=== PATIENT | female | born 1950 | race Caucasian/White ===

== ENCOUNTER 2021-01-01 07:26 | Day surgery (SDC) | payer MEDICARE, OTHER, SELFPAY ==
[2021-01-01] MEDS: Tropicam./Phenyleph. (1/2.5%) 5 ML BTL OS ×3 (07:46→08:02)
[2021-01-01 07:47] VITALS: BP 132/85; PULSE 76; RESP 16; TEMP 36.1; O2SAT 98
--- NOTE | 2021-01-01 07:56 | W.ANESPRE ---
General Info Date of Service Date Performed: 01/01/21 Height: 5 ft 9 in Weight: 96.2 kg Body Mass Index (BMI): 31.3 Surgical Procedure: Operation Date: 01/01/21 09:10 Proposed Procedures Side Surgeon p Cataract Extraction with IOL Implant Left Jaden Barrientos MD Meds Allergies and Home Medications Allergies Allergy/AdvReac Type Severity Reaction Status Date / Time latex Allergy Intermediate Skin Rash Unverified 01/01/21 07:42 Penicillins Allergy Intermediate Other (See Unverified 01/01/21 07:42 Comment) Home Medication Medication Instructions Recorded acetaminophen [Acetaminophen Extra 1,000 mg PO Q6H PRN 12/29/20 Strength] biotin 500 mg PO DAILY 12/29/20 ibuprofen 400 mg PO Q6H PRN 12/29/20 levothyroxine 100 mcg PO DAILY 12/29/20 vit C,R-Cj-yrfii-lutein-zeaxan 2 cap PO DAILY 12/29/20 [PreserVision AREDS-2] Current Visit Medications: Current Medications Generic Name Dose Route Start Last Admin Trade Name Thomasq PRN Reason Stop Dose Admin Acetaminophen 1,000 mg 01/01/21 06:00 Acetaminophen 500 Mg Tab PO Q4H PRN PRN Miscellaneous Medication 0 ml 01/01/21 06:00 Prednisolone 1%, Moxifloxacin 0.5%, Nepafenac 0.1% 5ml Btl OS DIRECTED [facility] Miscellaneous Medication 0 ml 01/01/21 06:00 01/01/21 07:52 Tropicam./Phenyleph. (1/2.5%) 5 Ml Btl OS 1 drp DIRECTED [facility] Administration Tetracaine HCl 0 ml 01/01/21 06:00 Tetracaine 0.5% 4 Ml Btl OS DIRECTED [facility] PFSH Active Problems Active Problems: Problem Status Onset Code Cortical cataract of left eye H26.9 Nuclear sclerotic cataract of left eye H25.12 Medical History Medical History Conduction disorder of the heart Pt. 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 Family history of blood disorder History of rheumatic fever as a child Hypothyroidism Insomnia Migraine with aura Neck pain Not for resuscitation Overweight Screening for hyperlipidemia Surgical History Surgical History Hx of cholecystectomy Hx of colonoscopy Hx of tonsillectomy Hx of tubal ligation Tobacco Smoking/Tobacco Use Status: Never Alcohol Alcohol Intake: never Substance Use Substance use type: does not use Vital Signs and Lab Results Vital Signs Most Recent Vital Signs in EMR: Most Recent Vital Signs Temp Pulse Resp BP Pulse Ox 36.1 C L 76 16 132/85 98 01/01/21 07:47 01/01/21 07:47 01/01/21 07:47 01/01/21 07:47 01/01/21 07:47 Lab Results Blood Type / Crossmatch: No Data to Display Complete Blood Count: No Data to Display Complete Metabolic Panel: No Data to Display Liver Function Panel: No Data to Display Coagulation Panel: No Data to Display Cardiac Panel: No Data to Display Arterial Blood Gas: No Data to Display Venous Blood Gas: No Data to Display Pancreas Panel: No Data to Display Thyroid Panel: No Data to Display Infectious Disease: No Data to Display Blood Cultures: No Data to Display Toxicology Panel: No Data to Display Anesthesia Assessment and Plan Anesthesia History Personal History: No History of Anesthesia Complications Family History: No Family History of Anesthesia Complications Exercise Tolerance Exercise Tolerance: Metabolic Equivalents>4 Pertinent Negatives Pertinent Negatives: No Symptoms of GERD, No Major Cardiovascular Symptoms or Complaints, No Major Pulmonary Symptoms or Complaints and No History of CVA/TIA Cardiac & Pulmonary Exam Cardiac Exam: Normal S1/S2 Heart Sounds Pulmonary Exam: Clear Bilateral Breath Sounds Airway Exam Known Difficult Airway: No Mallampati Class: 1 Mouth Opening: Normal (> 3cm) Thyromental Distance: Greater than 3 cm Neck Range of Motion: Full ROM Neck Circumference: Normal Teeth Condition: Normal Dentition ASA Classification ASA Score: ASA 1 Emergency Case?: No NPO Status NPO Status: NPO Clears >2 hours, Solids >8 hours Anesthesia Plan Resuscitation Status: Full Code Anesthesia Technique: MAC Anesthesia Airway Planned: Natural Airway Monitors Used: Standard Monitors
[2021-01-01 07:59] VITALS: BMI 31.3
[2021-01-01] MEDS: Tetracaine 0.5% 4 ML BTL OS (08:54)
[2021-01-01] MEDS: Balanced Salt Soln.-PLUS 500 ML BAG (08:54)
[2021-01-01] MEDS: Duovisc Viscoelastic System EACH 1 EACH (08:55)
[2021-01-01] MEDS: Lidocaine 1% Pres-Free 5 ML VIAL (08:56)
[2021-01-01] MEDS: Lidocaine 2% Jelly 6 ML SYR (08:57)
[2021-01-01] MEDS: Povidone-Iodine Ophth 30 ML BTL (08:58)
--- NOTE | 2021-01-01 09:19 | W.PM.DSUDISC ---
Discharge Plan Disposition Patient Disposition: HOME Condition: Good Discharge Details Reason For Visit: CATARACT Attending Provider: Jaden Barrientos Primary Care Provider: Demetrius You Home Meds and New Rx's Prescriptions: No Action acetaminophen [Acetaminophen Extra Strength] 500 mg Tablet 1,000 mg PO Q6H PRNRF: 0 levothyroxine 100 mcg Tablet 100 mcg PO DAILY RF: 0 ibuprofen 200 mg Tablet 400 mg PO Q6H PRNRF: 0 biotin 1 mg Capsule 500 mg PO DAILY RF: 0 PreserVision AREDS-2 250-90-40-1 mg Capsule 2 cap PO DAILY RF: 0 Discharge Instructions Stand Alone Forms: Post-op Topical Cataract, Alyssia Blanca ([facility]) Discharge Orders Discharge Orders: Discharge Order (Routine); Ordered 01/01/21 Ordered By: Jaden Barrientos DS: Diagnosis Discharge Diagnosis (1) Cortical cataract of left eye: Status: Resolved (2) Nuclear sclerotic cataract of left eye: Status: Resolved
--- NOTE | 2021-01-01 09:20 | ROE_ITS ---
Date of service: 01/01/21 Time of Service: 09:20 Operative Note Operative Note DATE OF PROCEDURE: 01/01/21 PRE-OP DIAGNOSIS: Nuclear/cortical cataract, left eye POST-OP DIAGNOSIS: same PROCEDURE: Cataract extraction using phacoemulsification with intraocular lens implant, left eye SURGEON: Jaden Barrientos ANESTHESIA TYPE: Local By Surgeon and MAC Refer to Anesthesia Record PATHOLOGY: none sent COMPLICATIONS: None Patient was transported to: same day Patient's condition: stable Implants: [employer] / [employer] Tecnis ZCB00 Indications: Progressive decreased vision due to cataract, left eye Procedure Description: CATARACT SURGERY OPERATIVE REPORT PREOPERATIVE DIAGNOSIS: Nuclear/cortical cataract, left eye POSTOPERATIVE DIAGNOSIS: Same OPERATION: Cataract extraction using phacoemulsification with posterior chamber intraocular lens implant, left eye. IOL: IOL Senior [employer] Parachutist/Model: J[employer]J Vision / DEXTER Tecnis ZCB00 IOL Power: + 19.0 diopters IOL Serial Number: [id number] Optic Diameter: 6.0mm Haptic/Overall Diameter: 13.0mm PHACO INFO: Garrett [employer]ion Vision System with OZil and Active Fluidics Cumulative Dispersed Energy (CDE): 6.05 seconds SURGEON: Jaden Barrientos MD, JASIEL ANESTHESIA: Monitored Anesthesia Care (MAC), with local sub-tenon's anesthetic infiltration COMPLICATIONS: None SPECIMENS: None INDICATIONS FOR PROCEDURE: The patient is a 70-year-old lady with history of diminished visual acuity in her left eye secondary to the development of nuclear and cortical cataract. The option of cataract surgery was offered to the patient and she felt she was symptomatic enough that she wished to proceed. PROCEDURE: The correct surgical eye was identified and marked as the left eye and the pupil was dilated in the preoperative area using mydriatics and cycloplegics. The dilated pupil size was 6.5 mm. She elected to proceed without oral sedation. The patient was brought to the operating room where cardiopulmonary monitoring was instituted and surgical time-out was performed, confirming the correct operative eye and IOL power. Topical anesthesia was administered and ophthalmic povidone-iodine 5% was instilled into the conjunctival fornices. Lidocaine gel was applied to the cornea and the christi-ocular area was prepped with Betadine 10% solution and draped in the usual sterile fashion for intraocular surgery, including an aperture drape. A Tegaderm transparent film dressing was cut in half and used to cover the lashes and lid margins. Care was taken to sequester the lashes and lid margins under the Tegaderm dressing. A lid speculum was placed between the lids of the operative eye and the Rebecca-Monkia operating microscope was maneuvered into position. Essence scissors were then used to make a conjunctival buttonhole approximately 6mm posterior to the limbus in the inferonasal quadrant. Blunt dissection was carried out to expose bare sclera, and a blunt-tipped sub-tenon?s anesthesia cannula was introduced and passed posteriorly along the globe where non- preserved plain lidocaine was injected into posterior sub-Tenon?s space. A sideport knife was used to make a paracentesis port superior/superiortemporally. Intraocular phenylephrine/lidocaine was injected into the anterior chamber. The anterior chamber was then filled with viscoelastic. A 2.4mm keratome knife was used to create a half-thickness groove at the limbus and then to construct a three-plane near-clear corneal tunnel extending 2.0mm into clear cornea in the temporal position. . A flap was raised on the anterior capsule and capsulorhexis forceps were used to complete a continuous curvilinear capsulorhexis of 5.5 mm. Balanced salt solution was then used to perform cortical cleaving hydrodissection and nuclear hydrodelineation until the lens could be freely rot ated within the capsular bag. The lens nucleus was then disassembled and removed within the capsular bag and iris plane using phacoemulsification. Residual cortical material was removed using the 45-degree angled silicone I/A tip with 0.3mm port. The posterior capsule was carefully polished to remove as much residual lens epithelial cells as safely possible. The capsular bag was then inflated and the anterior chamber deepened with viscoelastic. The lens implant described above was inserted into the capsular bag using the DEXTER [place] Injector. A Kuglen hook was used to dial the IOL into position. Residual viscoelastic was then removed first from posterior to the IOL, then from the anterior chamber using the I/A handpiece. The lens implant was noted to center nicely within the capsular bag. The incisions were stromally hydrated, and the anterior chamber was reformed using BSS. Then 0.5cc of moxifloxacin 1.0mg/ml were injected into the capsular bag and anterior chamber. The inci sions were checked with a Weck spear and found to be secure. Several drops of ophthalmic povidone-iodine 5% were then applied to the eye followed by two drops of Imprimis combination prednisolone/moxifloxacin/nepafenac solution. The drapes were removed and a clear plastic protective eye shield was placed over the eye. The patient was then returned to Same Day Surgery in stable condition.
[2021-01-01 09:28] VITALS: BP 136/80; PULSE 72; RESP 16; TEMP 36.6; O2SAT 99
--- NOTE | 2021-01-01 09:31 | W.ANESPOSTOP ---
Postoperative Evaluation Date, Time and Location Date Performed: 01/01/21 Time Performed: 09:31 Patient Location: Day Surgery Unit Vital Signs Most Recent Imported Vital Signs: Most Recent Vital Signs Temp Pulse Resp BP Pulse Ox 36.6 C 72 16 136/80 99 01/01/21 09:28 01/01/21 09:28 01/01/21 09:28 01/01/21 09:28 01/01/21 09:28 Most Recent Manually Entered Vital Signs: Adult Blood Pressure: 136/78 Heart Rate: 81 Respirations: 12 Oxygen Saturation (%): 98 Temperature (C): 36.3 C Pain Score (0-10 Scale): 0 Pain Score Most Recent Pain Score: Most Recent Pain Score Pain Level 0 01/01/21 09:28 Assessment Mental Status: Awake (Alert & Oriented to Patient Baseline) Airway and Respiratory Function: Patent airway with normal (patient baseline) respiratory exam Cardiovascular Function: Hemodynamically Stable Hydration Status: Adequately Hydrated Nausea & Vomiting: No Nausea or Vomiting Pain: Pt. Denies Any Pain Peripheral Nerve Block: Patient did not receive a nerve block
[2021-01-01 09:32] VITALS: BP 136/78; PULSE 81; RESP 12; TEMPC 36.3; O2SAT 98
== END 2021-01-01 09:41 | disposition home or self-care (01) ==
PROVIDERS: PCP Internal Medicine; Visit Provider Ophthalmology
PROC: (CPT 66984; principal; 2021-01-01 09:00)
DX: H25.12 Age-related nuclear cataract, left eye (principal)
CPT/HCPCS: 66984; V2632

== ENCOUNTER 2021-01-15 06:56 | Day surgery (SDC) | payer MEDICARE, OTHER, SELFPAY ==
[2021-01-15 07:14] VITALS: BP 131/79; PULSE 77; RESP 16; TEMP 36.2; O2SAT 97
[2021-01-15] MEDS: Tropicam./Phenyleph. (1/2.5%) 5 ML BTL OD ×3 (07:14→07:24)
--- NOTE | 2021-01-15 07:37 | ANES.PREOP_ITS ---
General Info Date of Service Date Performed: 01/15/21 Height: 5 ft 9 in Weight: 95.9 kg Body Mass Index (BMI): 31.2 Surgical Procedure: Operation Date: 01/15/21 08:25 Proposed Procedures Side Surgeon p Cataract Extraction with IOL Implant Right Jaden Barrientos MD Meds Allergies and Home Medications Allergies Allergy/AdvReac Type Severity Reaction Status Date / Time latex Allergy Intermediate Skin Rash Unverified 01/15/21 07:13 Penicillins Allergy Intermediate Other (See Unverified 01/15/21 07:13 Comment) Home Medication Medication Instructions Recorded acetaminophen [Acetaminophen Extra 1,000 mg PO Q6H PRN 12/29/20 Strength] biotin 500 mg PO DAILY 12/29/20 ibuprofen 400 mg PO Q6H PRN 12/29/20 levothyroxine 100 mcg PO DAILY 12/29/20 vit C,A-Gr-vmaub-lutein-zeaxan 2 cap PO DAILY 12/29/20 [PreserVision AREDS-2] Current Visit Medications: Current Medications Generic Name Dose Route Start Last Admin Trade Name Thomasq PRN Reason Stop Dose Admin Acetaminophen 1,000 mg 01/15/21 06:00 Acetaminophen 500 Mg Tab PO Q4H PRN PRN Miscellaneous Medication 0 ml 01/15/21 06:00 Prednisolone 1%, Moxifloxacin 0.5%, Nepafenac 0.1% 5ml Btl OD [facility] Miscellaneous Medication 0 ml 01/15/21 06:00 01/15/21 07:24 Tropicam./Phenyleph. (1/2.5%) 5 Ml Btl OD 1 drp DIRECTED [facility] Administration Tetracaine HCl 0 ml 01/15/21 06:00 Tetracaine 0.5% 4 Ml Btl OD DIRECTED [facility] PFSH Active Problems Active Problems: Problem Status Onset Code Nuclear sclerotic cataract of right eye H25.11 Cortical cataract of right eye H26.9 Cortical cataract of left eye H26.9 Nuclear sclerotic cataract of left eye H25.12 Medical History Medical History Conduction disorder of the heart Pt. 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 Family history of blood disorder History of rheumatic fever as a child Hypothyroidism Insomnia Migraine with aura Neck pain Not for resuscitation Overweight Screening for hyperlipidemia Surgical History Surgical History Hx of cholecystectomy Hx of colonoscopy Hx of tonsillectomy Hx of tubal ligation Tobacco Smoking/Tobacco Use Status: Never Alcohol Alcohol Intake: never Substance Use Substance use: Never Substance use type: does not use Details: alcohol: t-1, couple drinks Vital Signs and Lab Results Vital Signs Most Recent Vital Signs in EMR: Most Recent Vital Signs Temp Pulse Resp BP Pulse Ox 36.2 C L 77 16 131/79 97 01/15/21 07:14 01/15/21 07:14 01/15/21 07:14 01/15/21 07:14 01/15/21 07:14 Lab Results Blood Type / Crossmatch: No Data to Display Complete Blood Count: No Data to Display Complete Metabolic Panel: No Data to Display Liver Function Panel: No Data to Display Coagulation Panel: No Data to Display Cardiac Panel: No Data to Display Arterial Blood Gas: No Data to Display Venous Blood Gas: No Data to Display Pancreas Panel: No Data to Display Thyroid Panel: No Data to Display Infectious Disease: No Data to Display Blood Cultures: No Data to Display Toxicology Panel: No Data to Display Anesthesia Assessment and Plan Anesthesia History Personal History: No History of Anesthesia Complications Family History: No Family History of Anesthesia Complications Exercise Tolerance Exercise Tolerance: Metabolic Equivalents>4 Cardiac & Pulmonary Exam Cardiac Exam: Normal S1/S2 Heart Sounds Pulmonary Exam: Clear Bilateral Breath Sounds Airway Exam Known Difficult Airway: No Mallampati Class: 1 Mouth Opening: Normal (> 3cm) Thyromental Distance: Greater than 3 cm Neck Range of Motion: Full ROM Neck Circumference: Normal Teeth Condition: Normal Dentition ASA Classification ASA Score: ASA 2 Emergency Case?: No NPO Status NPO Status: NPO Clears >2 hours, Solids >8 hours Anesthesia Plan Resuscitation Status: Full Code Anesthesia Technique: MAC Anesthesia Airway Planned: Natural Airway Monitors Used: Standard Monitors
[2021-01-15 07:39] VITALS: BMI 31.2
[2021-01-15] MEDS: Lidocaine 2% Jelly 6 ML SYR (08:19)
[2021-01-15] MEDS: Tetracaine 0.5% 4 ML BTL OD (08:20)
[2021-01-15] MEDS: Povidone-Iodine Ophth 30 ML BTL (08:20)
[2021-01-15] MEDS: Balanced Salt Soln.-PLUS 500 ML BAG (08:22)
[2021-01-15] MEDS: Duovisc Viscoelastic System EACH 1 EACH (08:23)
[2021-01-15] MEDS: Lidocaine 1% Pres-Free 5 ML VIAL (08:25)
[2021-01-15 08:47] VITALS: BP 145/81; PULSE 68; RESP 16; TEMP 36; O2SAT 100
--- NOTE | 2021-01-15 08:47 | W.PM.DSUDISC ---
Discharge Plan Disposition Patient Disposition: HOME Condition: Good Discharge Details Reason For Visit: CATARACT Attending Provider: Jaden Barrientos Primary Care Provider: Demetrius You Home Meds and New Rx's Prescriptions: No Action acetaminophen [Acetaminophen Extra Strength] 500 mg Tablet 1,000 mg PO Q6H PRNRF: 0 levothyroxine 100 mcg Tablet 100 mcg PO DAILY RF: 0 ibuprofen 200 mg Tablet 400 mg PO Q6H PRNRF: 0 biotin 1 mg Capsule 500 mg PO DAILY RF: 0 PreserVision AREDS-2 250-90-40-1 mg Capsule 2 cap PO DAILY RF: 0 Discharge Instructions Stand Alone Forms: Post-op Topical Cataract, Alyssia Blanca ([facility]) Discharge Orders Discharge Orders: Discharge Order (Routine); Ordered 01/15/21 Ordered By: Jaden Barrientos DS: Diagnosis Discharge Diagnosis (1) Nuclear sclerotic cataract of right eye: Status: Resolved (2) Cortical cataract of right eye: Status: Resolved
--- NOTE | 2021-01-15 08:50 | W.PM.OP ---
Date of service: 01/15/21 Time of Service: 08:50 Operative Note Operative Note DATE OF PROCEDURE: 01/15/21 PRE-OP DIAGNOSIS: Nuclear/cortical cataract, right eye POST-OP DIAGNOSIS: same PROCEDURE: Cataract extraction using phacoemulsification with intraocular lens implant, right eye SURGEON: Jaden Barrientos ANESTHESIA TYPE: Local By Surgeon and MAC Refer to Anesthesia Record ESTIMATED BLOOD LOSS: 0 PATHOLOGY: none sent COMPLICATIONS: None Patient was transported to: same day Patient's condition: stable Implants: [employer] / [employer] Opt[employer] Tecnis ZCB00 intraocular lens Indications: Progressive decreased vision due to cataract, right eye Procedure Description: CATARACT SURGERY OPERATIVE REPORT PREOPERATIVE DIAGNOSIS: Nuclear/cortical cataract, right eye POSTOPERATIVE DIAGNOSIS: Same OPERATION: Cataract extraction using phacoemulsification with posterior chamber intraocular lens implant, right eye. IOL: IOL Dairy Helper/Model: J[employer]J Vision / DEXTER Tecnis ZCB00 IOL Power: + 18.5 diopters IOL Serial Number: [id number] Optic Diameter: 6.0mm Haptic/Overall Diameter: 13.0mm PHACO INFO: Garrett Talento al [employer] Vision System with OZil and Active Fluidics Cumulative Dispersed Energy (CDE): 5.16 seconds SURGEON: Jaden Barrientos MD, JASIEL ANESTHESIA: Monitored Anesthesia Care (MAC), with local sub-tenon's anesthetic infiltration COMPLICATIONS: None SPECIMENS: None INDICATIONS FOR PROCEDURE: The patient is a 70-year-old lady with history of diminished visual acuity in her right eye. She is noted to have a symptomatic nuclear and cortical cataract. She has already undergone cataract surgery in the left eye and is doing well postoperatively. She now presents for cataract surgery in the right. PROCEDURE: The correct surgical eye was identified and marked as the right eye and the pupil was dilated in the preoperative area using mydriatics and cycloplegics. The dilated pupil size was 8.0 mm. She elected to proceed without oral sedation.. The patient was brought to the operating room where cardiopulmonary monitoring was instituted and surgical time-out was performed, confirming the correct operative eye and IOL power. Topical anesthesia was administered and ophthalmic povidone-iodine 5% was instilled into the conjunctival fornices. Lidocaine gel was applied to the cornea and the christi-ocular area was prepped with Betadine 10% solution and draped in the usual sterile fashion for intraocular surgery, including an aperture drape. A Tegaderm transparent film dressing was cut in half and used to cover the lashes and lid margins. Care was taken to sequester the lashes and lid margins under the Tegaderm dressing. A lid speculum was placed between the lids of the operative eye and the Rebecca-Monika operating microscope was maneuvered into position. Essence scissors were then used to make a conjunctival buttonhole approximately 6mm posterior to the limbus in the inferonasal quadrant. Blunt dissection was carried out to expose bare sclera, and a blunt-tipped sub-tenon?s anesthesia cannula was introduced and passed posteriorly along the globe where non-preserved plain lidocaine was injected into posterior sub-Tenon?s space. A sideport knife was used to make a paracentesis port inferiortemporally. Intraocular phenylephrine/lidocaine was injected into the anterior chamber. The anterior chamber was then filled with viscoelastic. A 2.4mm keratome knife was used to create a half-thickness groove at the limbus and then to construct a three-plane near-clear corneal tunnel extending 2.0mm into clear cornea in the superiortemporal position. . A flap was raised on the anterior capsule and capsulorhexis forceps were used to complete a continuous curvilinear capsulorhexis of 5.5 mm. Balanced salt solution was then used to perform cortical cleaving hydrodissection and nuclear hydrodelineation until the lens could be freely rotated within the capsular bag. The lens nucleus was then disassembled and removed within the capsular bag and iris plane using phacoemulsification. Residual cortical material was removed using the I/A handpiece. The posterior capsule was carefully polished to remove as much residual lens epithelial cells as safely possible. The capsular bag was then inflated and the anterior chamber deepened with viscoelastic. The lens implant described above was inserted into the capsular bag using the DEXTER [place] Injector. A Kuglen hook was used to dial the IOL into position. Residual viscoelastic was then removed first from posterior to the IOL, then from the anterior chamber using the I/A handpiece. The lens implant was noted to center nicely within the capsular bag. The incisions were stromally hydrated, and the anterior chamber was reformed using BSS. Then 0.5cc of moxifloxacin 1.0mg/ml were injected into the capsular bag and anterior chamber. The incisions were checked with a Weck spear and found to be secure. Several drops of ophthalmic povidone-iodine 5% were then applied to the eye followed by two drops of Imprimis combination prednisolone/moxifloxacin/nepafenac solution. The drapes were removed and a clear plastic protective eye shield was placed over the eye. The patient was then returned to Same Day Surgery in stable condition.
--- NOTE | 2021-01-15 09:18 | W.ANESPOSTOP ---
Postoperative Evaluation Date, Time and Location Date Performed: 01/15/21 Time Performed: 08:50 Patient Location: Day Surgery Unit Vital Signs Most Recent Imported Vital Signs: Most Recent Vital Signs Temp Pulse Resp BP Pulse Ox 36 C L 68 16 145/81 H 100 01/15/21 08:47 01/15/21 08:47 01/15/21 08:47 01/15/21 08:47 01/15/21 08:47 Pain Score Most Recent Pain Score: Most Recent Pain Score Pain Level 0 01/15/21 08:47 Assessment Mental Status: Awake (Alert & Oriented to Patient Baseline) Airway and Respiratory Function: Patent airway with normal (patient baseline) respiratory exam Cardiovascular Function: Hemodynamically Stable Hydration Status: Adequately Hydrated Nausea & Vomiting: No Nausea or Vomiting Pain: Pt. Denies Any Pain Peripheral Nerve Block: Patient did not receive a nerve block
== END 2021-01-15 09:06 | disposition home or self-care (01) ==
PROVIDERS: PCP Internal Medicine; Visit Provider Ophthalmology
PROC: (CPT 66984; principal; 2021-01-15 08:15)
DX: H25.11 Age-related nuclear cataract, right eye (principal); E03.9 Hypothyroidism, unspecified
CPT/HCPCS: 66984; V2632